=== PATIENT | male | born 1990 | race African-American/Black ===

== ENCOUNTER 2016-06-05 12:02 | Emergency (ER) | payer SELFPAY ==
[~2016-06-05] VITALS: Ht 182.9 cm; Wt 97.0 kg
[2016-06-05 12:08] VITALS: BP 136/96; PULSE 100; RESP 19; TEMP 97.7; O2SAT 98
[2016-06-05] MEDS ORDERED: ADDE30TA PO (12:17)
[2016-06-05] MEDS ORDERED: ALPR.5 PO (12:22)
--- NOTE | 2016-06-05 12:22 | PD ---
HPI Chief Complaint: Anxiety Time Seen by Provider: 12:14 Travel History International Travel<30 days: No Contact w/Intl Traveler<30days: No Traveled to known affect area: No History of Present Illness HPI 26-year-old male here with complaint of anxiety. Patient has a long-standing history of anxiety disorder, notes increasing stress at work for the last month. He works as a CPA. States that he's been having insomnia and racing thoughts at night. Today he was driving to look at an apartment with his girlfriend when he had a panic attack with sense of impending doom, shortness of breath, palpitations, anxiety feeling. States that this feels similar to his previous panic attacks. Patient is on Adderall, but nothing for his anxiety currently. Historically as a teenager he was on Xanax which states helped. PFSH Past Medical History Anxiety: Yes Insomnia: Yes Influenza Vaccination: No ?: Not Social History Alcohol Use: Yes (occas) Tobacco Use: Yes Substance Use: No Allergies-Medications (Allergen,Severity, Reaction): Coded Allergies: No Known Allergies (Unverified , 06/05/16) Reported Meds & Prescriptions Reported Meds & Active Scripts Active Xanax (Alprazolam) 0.5 Mg Tab 0.5 Mg PO Q4H PRN Reported Adderall (Amphetamine-Dextroamphetamine) 30 Mg Tab 30 Mg PO DAILY PRN Avoid late evening doses. Space doses at least 4 to 6 hours if more than once/day dosing. Review of Systems Except as stated in HPI: all other systems reviewed are Neg Physical Exam Narrative GENERAL: Well-appearing male in no acute distress SKIN: Focused skin assessment warm/dry. HEAD: Normocephalic. EYES: No scleral icterus. No injection or drainage. ENT: Mucous membranes pink and moist. NECK: Supple CARDIOVASCULAR: Regular rate and rhythm. No murmur appreciated. RESPIRATORY: No accessory muscle use. Clear to auscultation. Breath sounds equal bilaterally. MUSCULOSKELETAL: Normal gait NEUROLOGICAL: Awake and alert. No obvious cranial nerve deficits. Motor grossly within normal limits. Normal speech. PSYCHIATRIC: Anxious Data Data Last Documented VS Vital Signs Date Time Temp Pulse Resp B/P Pulse Ox O2 Delivery O2 Flow Rate FiO2 06/05/16 12:08 97.7 100 19 136/96 98 Orders Alprazolam (Xanax) (06/05/16 12:30) [facility] Medical Decision Making Medical Screen Exam Complete: Yes Emergency Medical Condition: Yes Medical Record Reviewed: Yes Differential Diagnosis 26-year-old male with history of anxiety here with complaint of same. His symptoms are likely situational with increasing psychosocial stressors at work, trying to find housing, etc. He describes a panic attack today. Narrative Course Given his story of improvement with Xanax patient will be given small prescription for this and was encouraged to follow up as an outpatient to establish primary care for further long-term management. Diagnosis Primary Impression: Anxiety Referrals: [facility] call for appointment Additional Instructions: Xanax as needed for anxiety. Follow-up with primary care to establish care and long-term treatment plan. Med/Other Pt SpecificInfo: Prescription(s) given Scripts Alprazolam (Xanax)0.5 Mg Tab0.5 Mg PO Q4H PRN (ANXIETY) #20 TAB Ref 0 Prov:Kiera Salgado MD 06/05/16 Disposition: 01 DISCHARGE HOME Condition: Stable Kiera Salgado MD Jun 05, 2016 12:22
[2016-06-05] MEDS ORDERED: ALPRAZolam 0.5 MG TAB PO ONE (12:30)
== END 2016-06-05 12:35 | disposition home or self-care (01) ==
LOC: PHED 12:02
DX: F41.9 Anxiety disorder, unspecified (principal); G47.00 Insomnia, unspecified; Z72.0 Tobacco use
CPT/HCPCS: 99283